=== PATIENT | female | born 1995 | race African-American/Black ===

== ENCOUNTER 2017-03-30 11:39 | Emergency (ER) | payer SELFPAY ==
[~2017-03-30] VITALS: Ht 157.5 cm; Wt 60.0 kg
[2017-03-30 11:40] VITALS: BP 120/66; TEMP 97.8; O2SAT 100
--- NOTE | 2017-03-30 11:48 | PD ---
HPI Chief Complaint: ENT Complaint Time Seen by Provider: 11:47 Travel History International Travel<30 days: No Contact w/Intl Traveler<30days: No Traveled to known affect area: No History of Present Illness HPI 22-year-old female came to the emergency room since she's had been having trouble hearing from her right ear for past 2-3 days. She says that the sound appears to be muffled or dampened. Tried putting a Q-tip in cleaning her ear but was unsuccessful. She denies of any ear ache. [facility] Past Medical History Narrative Medical List of her past medical, surgical, social and family history is reviewed from the nursing note. Asthma: No Diabetes: No Diminished Hearing: No Reproductive: Yes ([employer] CY[employer]) Immunizations Current: Yes ?: Not LMP: MAR 10, 2017 Social History Alcohol Use: No Tobacco Use: No Allergies-Medications (Allergen,Severity, Reaction): Coded Allergies: No Known Allergies (Unverified , 05/19/14) Comments No known drug allergies. Reported Meds & Prescriptions Reported Meds & Active Scripts Active Debrox Otic Drops (Carbamide Peroxide Otic Drops) 6.5% Soln 5-10 Drop EACH EAR BID PRN up to 4 days. Narrative Medication List of her home medications reviewed from the nursing note. Review of Systems Except as stated in HPI: all other systems reviewed are Neg Physical Exam Narrative GENERAL: Awake, alert, no obvious distress SKIN: Focused skin assessment warm/dry. HEAD: Atraumatic. Normocephalic. EYES: Pupils equal and round. No scleral icterus. No injection or drainage. ENT: No nasal bleeding or discharge. Mucous membranes pink and moist. Large cerumen impaction in the right ear canal. NECK: Trachea midline. No JVD. CARDIOVASCULAR: Regular rate and rhythm. No murmur appreciated. RESPIRATORY: No accessory muscle use. Clear to auscultation. Breath sounds equal bilaterally. GASTROINTESTINAL: Abdomen soft, non-tender, nondistended. Hepatic and splenic margins not palpable. MUSCULOSKELETAL: No obvious deformities. No clubbing. No cyanosis. No edema. NEUROLOGICAL: Awake and alert. No obvious cranial nerve deficits. Motor grossly within normal limits. Normal speech. PSYCHIATRIC: Appropriate mood and affect; insight and judgment normal. Data Data Last Documented VS Vital Signs Date Time Temp Pulse Resp B/P (MAP) Pulse Ox O2 Delivery O2 Flow Rate FiO2 03/30/17 13:45 03/30/17 11:40 97.8 78 16 100 Orders Orders Carbamide Peroxide 6.5% Otic (Debrox 6.5 (03/30/17 12:30) Ed Discharge Order (03/30/17 13:26) MDM Medical Decision Making Medical Screen Exam Complete: Yes Emergency Medical Condition: Yes Medical Record Reviewed: Yes Differential Diagnosis Cerumen impaction Narrative Course 1:29 PM I had ordered Debrox otic but I was told that this pharmacy doesn't carry. It's not an emergency and I have given a prescription of her to the patient. She'll be discharged home. Procedures EKG Prior to Arrival: No Diagnosis Primary Impression: Cerumen impaction Qualified Codes: H61.21 - Impacted cerumen, right ear Referrals: Primary Care Physician Additional Instructions: Instilled a medication prescribed to you in the affected ear as per the prescription direction. Follow-up with your primary care. Give it at least 48- 72 hours to start having affect. In the meanwhile if there is pain you can take Motrin/Advil/ibuprofen [id number] for pain. Med/Other Pt SpecificInfo: Prescription(s) given Scripts Carbamide Peroxide Otic Drops (Debrox Otic Drops) 6.5% Soln 5-10 DROP EACH EAR BID Y for Ear Wax Removal, #1 BOTTLE 0 Refills up to 4 days. Prov: Juan Daniel Springer MD 03/30/17 Disposition: 01 DISCHARGE HOME Condition: Stable Juan Daniel Springer MD Mar 30, 2017 11:48
[2017-03-30] MEDS ORDERED: CARBAMIDE PEROXIDE 6.5% OTIC SOLN 15 ML BTL EACH EAR ONE (12:30)
[2017-03-30] MEDS ORDERED: CARB6.5S5 EACH EAR (13:25)
== END 2017-03-30 13:45 | disposition home or self-care (01) ==
LOC: NEPD 11:39
DX: H61.21 Impacted cerumen, right ear (principal)
CPT/HCPCS: 99282